=== PATIENT | female | born 1980 | race African-American/Black ===

== ENCOUNTER 2017-02-13 08:14 | Emergency (ER) | payer SELFPAY ==
[~2017-02-13 08:14] MED LIST: CYCL10TA2 PO; HYDR-971 PO; NAPR500T3 PO; PENI250T85 PO
[2017-02-13 08:15] VITALS: BP 167/106
[2017-02-13] MEDS ORDERED: LISI10TA2 PO (09:14)
--- NOTE | 2017-02-13 09:15 | PHYS DOC ---
Past Medical History Past Medical History: Hypertension Past Surgical History: , Tonsillectomy Additional Past Surgical Histo: x 4 Alcohol Use: None Drug Use: None Adult General Chief Complaint Chief Complaint: SORE THROAT HPI HPI Patient is a 36 year old female presents to the emergency department with a history of sore throat, and dental pain. Patient states she has a history of HTN and has not taken BP medication for at least a year. Patient states her BP was elevated at home and she took one of her mothers BP pills, metoprolol, patient states this was a medication she was on for her HTN. Patient denies SOA , chest pain, headache, blurred vision or tinnitus. Patient states she does not have a PCP. Patient continues to state she noticed this lump on the left back area of her throat after she had taken the metoprolol. Review of Systems Review of Systems Constitutional: Denies fever or chills [] Eyes: Denies change in visual acuity, redness, or eye pain [] HENT: nasal congestion and sore throat [] Respiratory: cough denies shortness of breath [] Cardiovascular: No additional information not addressed in HPI [] GI: Denies abdominal pain, nausea, vomiting, bloody stools or diarrhea [] : Denies dysuria or hematuria [] Musculoskeletal: Denies back pain or joint pain [] Integument: Denies rash or skin lesions [] Neurologic: Denies headache, focal weakness or sensory changes [] Endocrine: Denies polyuria or polydipsia [] Allergies Allergies Allergies Coded Allergies Type Severity Reaction Last Updated Verified ibuprofen Allergy Severe angioedema 09/06/13 Yes ketorolac tromethamine Allergy Severe angioedema 09/06/13 Yes Physical Exam Physical Exam Constitutional: Well developed, well nourished, no acute distress, non-toxic appearance. [] HENT: Normocephalic, atraumatic, bilateral external ears normal, oropharynx moist, no oral exudates, nose normal. Bilateral TM normal, throat with redness, no erythema, no exudate, no uvla deviation. Patient was noted to have bilateral enlarged anterior cervical adenopathy. Patient with tooth second from the back on the left with fracture noted, no abscess noted. Eyes: PERRLA, EOMI, conjunctiva normal, no discharge. [] Neck: Normal range of motion, no tenderness, supple, no stridor. [] Cardiovascular:Heart rate regular rhythm, no murmur [] Lungs & Thorax: Bilateral breath sounds clear to auscultation [] Abdomen: Bowel sounds normal, soft, no tenderness, no masses, no pulsatile masses. [] Skin: Warm, dry, no erythema, no rash. [] Back: No tenderness Extremities: No tenderness, no cyanosis, no clubbing, ROM intact, no edema. [] Neurologic: Alert and oriented X 3, normal motor function, normal sensory function, no focal deficits noted. [] Psychologic: Affect normal, judgement normal, mood normal. [] EKG EKG [] Radiology/Procedures Radiology/Procedures [] Course & Med Decision Making Course & Med Decision Making Pertinent Labs and Imaging studies reviewed. (See chart for details) Patient will be provided with BP at discharge. She was instructed to obtain a PCP for further management of her BP. Patient was provided with doctor list. She was provided with signs and symptoms to return to the emergency department. Patient will be provided with dentist list. Rapid strep negative. Patient will be encouraged to use Mucinex DM over the counter for congestion and cough. Tylenol for fever, chills and generalized body aches. Also spoke with patient in regards to using dental wax over the counter for dental pain, no abscess noted. Patient agrees with discharge instructions, treatment regimen and followup recommendations. [] Dragon Disclaimer Dragon Disclaimer This electronic medical record was generated, in whole or in part, using a voice recognition dictation system. Departure Departure Impression: Primary Impression: Toothache Additional Impressions: Hypertension Pharyngitis Disposition: HOME, SELF-CARE Condition: STABLE Referrals: NO PCP (PCP) Patient Instructions: Arterial Hypertension, Dental Pain, [id number], Viral and Bacterial Pharyngitis, [id number] Additional Instructions: You have been evaluated for sore throat with rapid strep negative Drink plenty of fluids Tylenol for fever, chills or generalized body aches You may purchase dental wax over the counter to place on the tooth to prevent pain Mucinex DM for cough, congestion and nasal drainage Medication as prescribed for your blood pressure It is imperative that you obtain a primary care provider to monitor your blood pressures Followup with primary care provider in 7 days Return to emergency department as needed for signs and symptoms that become worse. Scripts Lisinopril (LISINOPRIL) 10 Mg Tablet 1 TAB PO DAILY, #30 TAB 5 Refills Prov: ANTONIO LINDER APRN 02/13/17 Problem Qualifiers ANTONIO LINDER APRN February 13, 2017 09:15
[2017-02-13 09:27] LABS: NEGATIVE OBC STREP NEG; POSITIVE OBC STREP POS
== END 2017-02-13 10:13 | disposition home or self-care (01) ==
LOC: ER 08:20
DX: J02.9 Acute pharyngitis, unspecified (principal); K08.89 Other specified disorders of teeth and supporting structures; I10 Essential (primary) hypertension; Z88.6 Allergy status to analgesic agent; Z88.8 Allergy status to other drugs, medicaments and biological substances
CPT/HCPCS: 87070; 87880; 99283

== ENCOUNTER 2017-06-26 22:32 | Emergency (ER) | payer BC ==
[~2017-06-26] VITALS: Ht 172.7 cm; Wt 113.4 kg
[~2017-06-26 22:32] MED LIST changes: +LISI10TA2 PO; -NAPR500T3 PO; +NAPR500T4 PO
[2017-06-26 22:48] VITALS: BP 158/75
--- NOTE | 2017-06-26 23:31 | PHYS DOC ---
Past Medical History Past Medical History: Hypertension Past Surgical History: , Tonsillectomy Additional Past Surgical Histo: x 4 Alcohol Use: None Drug Use: None Adult General Chief Complaint Chief Complaint: BREAST PROBLEM HPI HPI Patient is a 37 year old female with no significant medical history who presents with a palpable painful knot on the left upper chest that she noted 2 days ago. Patient denies any chance she is . Denies any injury. She states the area appears bruised but she has not had any injuries. She states she has history of DVT approximately 10-15 years ago when she is . Denies taking any blood thinners. She states she used to be on heavy and has been working out and loosing alot of weight. Review of Systems Review of Systems Constitutional: Denies fever or chills [] Eyes: Denies change in visual acuity, redness, or eye pain [] HENT: Denies nasal congestion or sore throat [] Respiratory: Denies cough or shortness of breath [] Cardiovascular: No additional information not addressed in HPI [] GI: Denies abdominal pain, nausea, vomiting, bloody stools or diarrhea [] : Denies dysuria or hematuria [] Musculoskeletal: Denies back pain or joint pain [] Integument: palpable painful knot on the left upper chest Neurologic: Denies headache, focal weakness or sensory changes [] Allergies Allergies Allergies Coded Allergies Type Severity Reaction Last Updated Verified ibuprofen Allergy Severe angioedema 09/06/13 Yes ketorolac tromethamine Allergy Severe angioedema 09/06/13 Yes Physical Exam Physical Exam Constitutional: Well developed, well nourished, no acute distress, non-toxic appearance. [] HENT: Normocephalic, atraumatic, bilateral external ears normal, oropharynx moist, no oral exudates, nose normal. [] Eyes: PERRLA, EOMI, conjunctiva normal, no discharge. [] Neck: Normal range of motion, no tenderness, supple, no stridor. [] Cardiovascular:Heart rate regular rhythm, no murmur [] Lungs & Thorax: Bilateral breath sounds clear to auscultation [] Abdomen: Bowel sounds normal, soft, no tenderness, no masses, no pulsatile masses. [] Skin: Warm, dry, left upper chest without palpable and knot approximately 2 x 2 cm over varicose veins on the chest, there is discoloration over this area. No warmth over the area Back: No tenderness, no CVA tenderness. [] Extremities: No tenderness, no cyanosis, no clubbing, ROM intact, no edema. [] Neurologic: Alert and oriented X 3, normal motor function, normal sensory function, no focal deficits noted. [] Psychologic: Affect normal, judgement normal, mood normal. [] Current Patient Data Vital Signs Vital Signs Date Time Temp Pulse Resp B/P (MAP) Pulse Ox O2 Delivery O2 Flow Rate FiO2 06/26/17 22:48 97.5 84 20 100 Room Air 97.5 EKG EKG [] Radiology/Procedures Radiology/Procedures []PROCEDURE: US CHEST Chest ultrasound: Reason for examination: Left subclavicular lump with tenderness for 3 days. No history of trauma. Ultrasound examination was performed in the area of clinical concern around the left clavicle with grayscale imaging, color-flow imaging and spectral analysis. The left subclavian vein and subclavian arteries show normal vascular flow. Superficially however there is thrombosis in a superficial varicose vein which appears to extend over a length of approximately 12 to 15 cm.. IMPRESSION: Thrombosis in a superficial varicose vein over a 12 to 15 cm length corresponds to the area of clinical concern. No deep venous thrombosis evident. Electronically signed by: Shana Rosales MD (06/26/2017 11:55 PM) [facility] DICTATED and SIGNED BY: SHANA ROSALES MD DATE: 06/26/17 2343 CC: ZACKARY HINSON APRN; NO PCP ~ Course & Med Decision Making Course & Med Decision Making Pertinent Labs and Imaging studies reviewed. (See chart for details) Patient is in the ED with a palpable painful knot on the left upper chest with surrounding varicose veins. Doppler of the chest was done which was noted for Thrombosis in a superficial varicose vein over a 12 to 15 cm length. No deep venous thrombosis evident. Spoke with Dr. Emmanuel patient relations specialist for Dr. Abdalla he requested we discharge patient and does not need aspirin Instructed patient to f/u with PCP, nitroglycerin distributor or vein clinic next week. Her vitals were stable. Dragon Disclaimer Dragon Disclaimer This electronic medical record was generated, in whole or in part, using a voice recognition dictation system. Departure Departure Impression: Primary Impression: Varicose vein of leg Disposition: HOME, SELF-CARE Condition: STABLE Referrals: NO PCP (PCP) MACEY ABDALLA MD followup next week Patient Instructions: Varicose Veins Additional Instructions: You have a superficial thrombosed varicose vein on the left upper chest. Follow- up with the vein clinic and a primary care doctor. Continued loosing weight with diet and exercise. Come back to the ED if you have any chest pain or shortness of breath. ZACKARY HINSON APRN Jun 26, 2017 23:30
--- NOTE | 2017-06-26 23:58 | RAD ---
Chest ultrasound: Reason for examination: Left subclavicular lump with tenderness for 3 days. No history of trauma. Ultrasound examination was performed in the area of clinical concern around the left clavicle with grayscale imaging, color-flow imaging and spectral analysis. The left subclavian vein and subclavian arteries show normal vascular flow. Superficially however there is thrombosis in a superficial varicose vein which appears to extend over a length of approximately 12 to 15 cm.. IMPRESSION: Thrombosis in a superficial varicose vein over a 12 to 15 cm length corresponds to the area of clinical concern. No deep venous thrombosis evident. Electronically signed by: Shana Winchester MD (06/26/2017 11:55 PM) [facility]
== END 2017-06-27 00:56 | disposition home or self-care (01) ==
LOC: ER 22:32
DX: R22.2 Localized swelling, mass and lump, trunk (principal); I83.92 Asymptomatic varicose veins of left lower extremity; I10 Essential (primary) hypertension; Z88.6 Allergy status to analgesic agent; Z88.8 Allergy status to other drugs, medicaments and biological substances; Z86.718 Personal history of other venous thrombosis and embolism
CPT/HCPCS: 76604; 99284-25

== ENCOUNTER 2019-05-11 21:42 | Emergency (ER) | payer SELFPAY ==
[~2019-05-11] VITALS: Ht 172.7 cm; Wt 145.1 kg
[~2019-05-11 21:42] MED LIST changes: +HYDR-3164 PO; -HYDR-971 PO; +NAPR-514 PO; -NAPR500T4 PO
[2019-05-11] MEDS ORDERED: fentaNYL PF VIAL 100 MCG/2 ML VIAL IV ONE (22:00)
[2019-05-11] MEDS ORDERED: FAMOTIDINE 20 MG/2 ML VIAL IVP ONE (22:00)
[2019-05-11] MEDS ORDERED: NITROGLYCERIN SUBLINGUAL 0.4 MG BOTTLE OF 25. SL PRN (22:00)
[2019-05-11] MEDS ORDERED: IV NORMAL SALINE 1000ML BAG 1,000 ML IV ONE (22:00)
[2019-05-11] MEDS ORDERED: ONDANSETRON PF 4 MG/2 ML VIAL. IV ONE (22:00)
--- NOTE | 2019-05-11 22:00 | PHYS DOC ---
Past Medical History Past Medical History: Hypertension Past Surgical History: , Tonsillectomy Additional Past Surgical Histo: x 4 Alcohol Use: None Drug Use: None Adult General Chief Complaint Chief Complaint: ABDOMINAL PAIN HPI HPI Patient is a 39 year old female with history of hypertension who presents to the ED today complaining of mild to moderate bilateral mid abdominal pain with nausea and vomiting that began yesterday. Patient is also complaining of chest soreness since this morning. Denies anything specifically exacerbating or relieving her symptoms. She states she has tried Pepto-Bismol with no relief. Denies any hematemesis. Denies any diarrhea. Review of Systems Review of Systems Constitutional: Denies fever or chills [] Eyes: Denies change in visual acuity, redness, or eye pain [] HENT: Denies nasal congestion or sore throat [] Respiratory: Denies cough or shortness of breath [] Cardiovascular: Reports chest soreness GI: Reports abdominal pain, nausea vomiting and diarrhea, denies bloody stools or diarrhea [] : Denies dysuria or hematuria [] Musculoskeletal: Denies back pain or joint pain [] Integument: Denies rash or skin lesions [] Neurologic: Denies headache, focal weakness or sensory changes [] All other systems were reviewed and found to be within normal limits, except as documented in this note. Current Medications Current Medications Current Medications Medications (Trade) Dose Ordered Sig/Jackie Start Time Stop Time Status Last Admin Dose Admin Famotidine (Pepcid Vial) 20 mg 1X ONCE 05/11/19 22:00 05/11/19 22:01 DC 05/11/19 22:30 20 MG Fentanyl Citrate (Fentanyl 2ml Vial) 50 mcg 1X ONCE 05/11/19 22:00 05/11/19 22:01 DC 05/11/19 22:30 50 MCG Info (CONTRAST GIVEN -- Rx MONITORING) 1 each PRN DAILY PRN 05/11/19 22:45 05/13/19 22:44 Iohexol (Omnipaque 300 Mg/ml) 75 ml 1X ONCE 05/11/19 22:45 05/11/19 22:46 DC 05/11/19 22:38 75 ML Nitroglycerin (Nitrostat) 0.4 mg PRN Q5MIN PRN 05/11/19 22:00 05/12/19 21:59 05/11/19 22:30 0.4 MG Ondansetron HCl (Zofran) 4 mg 1X ONCE 05/11/19 22:00 05/11/19 22:01 DC 05/11/19 22:30 4 MG Sodium Chloride 1,000 ml @ 1,000 mls/hr 1X ONCE 05/11/19 22:00 05/11/19 22:59 DC 05/11/19 22:30 1,000 MLS/HR Allergies Allergies Allergies Coded Allergies Type Severity Reaction Last Updated Verified ibuprofen Allergy Severe angioedema 09/06/13 Yes ketorolac tromethamine Allergy Severe angioedema 09/06/13 Yes Physical Exam Physical Exam Constitutional: Well developed, well nourished, no acute distress, non-toxic appearance. [] HENT: Normocephalic, atraumatic, bilateral external ears normal, oropharynx moist, no oral exudates, nose normal. [] Eyes: PERRLA, EOMI, conjunctiva normal, no discharge. [] Neck: Normal range of motion, no tenderness, supple, no stridor. [] Cardiovascular:Heart rate regular rhythm, no murmur [] Lungs & Thorax: Bilateral breath sounds clear to auscultation [] Abdomen: Bowel sounds normal, soft, no tenderness, no masses, no pulsatile masses. [] Skin: Warm, dry, no erythema, no rash. [] Back: No tenderness, no CVA tenderness. [] Extremities: No tenderness, no cyanosis, no clubbing, ROM intact, no edema. [] Neurologic: Alert and oriented X 3, normal motor function, normal sensory function, no focal deficits noted. [] Psychologic: Affect normal, judgement normal, mood normal. [] Current Patient Data Vital Signs Vital Signs Date Time Temp Pulse Resp B/P (MAP) Pulse Ox O2 Delivery O2 Flow Rate FiO2 05/11/19 22:30 Room Air 05/11/19 22:30 88 162/80 05/11/19 21:45 98.4 20 99 98.4 Lab Values Laboratory Tests Test 05/11/19 21:50 05/11/19 22:33 White Blood Count 9.5 x10^3/uL (4.0-11.0) Red Blood Count 4.19 x10^6/uL (3.50-5.40) Hemoglobin 10.2 g/dL (12.0-15.5) L Hematocrit 31.2 % (36.0-47.0) L Mean Corpuscular Volume 75 fL (79-100) L Mean Corpuscular Hemoglobin 24 pg (25-35) L Mean Corpuscular Hemoglobin Concent 33 g/dL (31-37) Red Cell Distribution Width 16.3 % (11.5-14.5) H Platelet Count 344 x10^3/uL (140-400) Neutrophils (%) (Auto) 64 % (31-73) Lymphocytes (%) (Auto) 25 % (24-48) Monocytes (%) (Auto) 9 % (0-9) Eosinophils (%) (Auto) 1 % (0-3) Basophils (%) (Auto) 1 % (0-3) Neutrophils # (Auto) 6.1 x10^3/uL (1.8-7.7) Lymphocytes # (Auto) 2.4 x10^3/uL (1.0-4.8) Monocytes # (Auto) 0.9 x10^3/uL (0.0-1.1) Eosinophils # (Auto) 0.1 x10^3/uL (0.0-0.7) Basophils # (Auto) 0.1 x10^3/uL (0.0-0.2) Sodium Level 141 mmol/L (136-145) Potassium Level 3.5 mmol/L (3.5-5.1) Chloride Level 105 mmol/L (98-107) Carbon Dioxide Level 28 mmol/L (21-32) Anion Gap 8 (6-14) Blood Urea Nitrogen 16 mg/dL (7-20) Creatinine 1.0 mg/dL (0.6-1.0) Estimated GFR (Cockcroft-Gault) 75.5 BUN/Creatinine Ratio 16 (6-20) Glucose Level 99 mg/dL (70-99) Calcium Level 9.0 mg/dL (8.5-10.1) Magnesium Level 2.1 mg/dL (1.8-2.4) Total Bilirubin 1.0 mg/dL (0.2-1.0) Aspartate Amino Transferase (AST) 17 U/L (15-37) Alanine Aminotransferase (ALT) 14 U/L (14-59) Alkaline Phosphatase 72 U/L (46-116) Creatine Kinase 159 U/L (26-192) Creatine Kinase MB (Mass) 0.7 ng/mL (0.0-3.6) Creatine Kinase MB Relative Index 0.4 % (0-4) Troponin I Quantitative < 0.017 ng/mL (0.000-0.055) QX-Zdp-L-Type Natriuretic Peptide 20 pg/mL (0-124) Total Protein 7.9 g/dL (6.4-8.2) Albumin 3.5 g/dL (3.4-5.0) Albumin/Globulin Ratio 0.8 (1.0-1.7) L Lipase 126 U/L (73-393) Thyroid Stimulating Hormone (TSH) 0.869 uIU/mL (0.358-3.74) Urine Collection Type Unknown Urine Color Yellow Urine Clarity Clear Urine pH 6.0 Urine Specific [place] >=1.030 Urine Protein Negative mg/dL (NEG-TRACE) Urine Glucose (UA) Negative mg/dL (NEG) Urine Ketones (Stick) Negative mg/dL (NEG) Urine Blood Negative (NEG) Urine Nitrite Negative (NEG) Urine Bilirubin Small (NEG) Urine Urobilinogen Dipstick 1.0 mg/dL (0.2 mg/dL) Urine Leukocyte Esterase Negative (NEG) Urine RBC 0 /HPF (0-2) Urine WBC 1-4 /HPF (0-4) Urine Squamous Epithelial Cells Mod /LPF Urine Bacteria Few /HPF (0-FEW) Urine Mucus Marked /LPF Urine Trichomonas Present Urine Opiates Screen Neg (NEG) Urine Methadone Screen Neg (NEG) Urine Barbiturates Neg (NEG) Urine Phencyclidine Screen Neg (NEG) Urine Amphetamine/Methamphetamine Neg (NEG) Urine Benzodiazepines Screen Neg (NEG) Urine Cocaine Screen Neg (NEG) Urine Cannabinoids Screen Pos (NEG) Urine Ethyl Alcohol Neg (NEG) Laboratory Tests 05/11/19 21:50 Laboratory Tests 05/11/19 21:50 EKG EKG 2140 interpreted by sinus rhythm HR 81 no STEMI[] Radiology/Procedures Radiology/Procedures []PROCEDURE: CT ABD PELV W/ IV CONTRST ONLY Exam: CT abdomen and pelvis with contrast INDICATION: Abdominal pain TECHNIQUE: Sequential axial images through the abdomen and pelvis obtained following the administration of 75 mL of Omni 300 IV contrast. Sagittal and coronal reformatted images were reconstructed from the axial data and reviewed. Comparisons: None FINDINGS: Heart size is normal. No pericardial effusion. Visualized lung bases are clear. No pleural effusion. Liver, spleen, pancreas, gallbladder and adrenals are unremarkable. Kidneys demonstrate symmetric enhancement. No perinephric inflammation or hydronephrosis. No renal or ureteral calculi. There is a small amount of intra-abdominal ascites seen along the perihepatic region. Mild inflammatory changes surrounding a short segment of small bowel in the right upper quadrant. No obstruction. No free intra-abdominal air. Abdominal aorta has a normal course and caliber. No enlarged abdominal lymph nodes are identified. No suspicious osseous lesion or acute fracture. IMPRESSION: Small amount of intra-abdominal ascites which is abnormal. There is inflammatory changes surrounding a short segment of small bowel in the right upper quadrant, which is nonspecific may represent enteritis. No free air or fluid collection identified. Close clinical follow-up is recommended. If symptoms worsen repeat imaging is advised. Exposure: One or more of the following in the visualized dose reduction techniques were utilized for this examination: 1. Automated exposure control 2. Adjustment of the MA and/or KV according to patient size 3. Use of iterative of reconstructive technique Electronically signed by: Zaida Chang MD (05/11/2019 10:52 PM) [facility] DICTATED and SIGNED BY: ZAIDA CHANG MD DATE: 05/11/192251 Course & Med Decision Making Course & Med Decision Making Pertinent Labs and Imaging studies reviewed. (See chart for details) This is a 39-year-old female patient with history of hypertension who presents to the ED today with abdominal pain, nausea vomiting since yesterday, also complaining of chest soreness. EKG is negative. Troponin is normal. See Heart score hillary. CBC with a normal WBC, CMP with no acute findings. Urine analysis is negative for infection, noted for Trichomonas. STD treatment and education provided. CT of the abdomen and pelvic was noted for ascites and possible nonspecific enteritis. Radiologist recommended close follow-up. Patient was provided GI for follow-up in the next 2 days. BP is in the ED 160s over 80s. Also encouraged follow-up with her PCP for high blood pressure. Dragon Disclaimer Dragon Disclaimer This electronic medical record was generated, in whole or in part, using a voice recognition dictation system. The HEART Score for CP Pts HEART Score for Chest Pain: HEART Score for Chest Pain Response (Comments) Value History Slighlty/Non-Suspicious 0 ECG Normal 0 Age < 45 0 Risk Factors 1 or 2 Risk Factors 1 Troponin < Normal Limit 0 Total 1 Risk Factors: Risk Factors: DM, Current or recent (<one month) smoker, HTN, HLP, family history of CAD, obesity. Risk Scores: Score 0 - 3: 2.5% MACE over next 6 weeks - Discharge Home Score 4 - 6: 20.3% MACE over next 6 weeks - Admit for Clinical Observation Score 7 - 10: 72.7% MACE over next 6 weeks - Early Invasive Strategies Departure Departure Impression: Primary Impression: Abdominal pain Additional Impressions: Nausea and vomiting Ascites Enteritis Disposition: HOME, SELF-CARE Condition: STABLE Referrals: NO PCP (PCP) KAM AU MD follow up as soon as you can Patient Instructions: Ascites, Viral Gastroenteritis Additional Instructions: You were evaluated in the emergency room for abdominal pain, you have ascites and gastroenteritis. You also have Trichomonas, we treated you in the emergency room. Follow up with the provided GI specialist as soon as you can. We also recommend you establish care with one of the primary care doctor or local clinic from the list with provided. Come back to the ED at any point symptoms worsen. Scripts Ondansetron (ONDANSETRON ODT) 4 Mg Tab.rapdis 1 TAB PO PRN Q6-8HRS, #16 TAB Prov: ZACKARY HINSON FRANKI 05/11/19 Dicyclomine Hcl (DICYCLOMINE HCL) 20 Mg Tablet 1 TAB PO TID, #30 TAB 0 Refills Prov: ZACKARY HINSON FRANKI 05/11/19 Problem Qualifiers Primary Impression: Abdominal pain Abdominal location: upper abdomen, unspecified Qualified Codes: R10.10 - Upper abdominal pain, unspecified Additional Impressions: Nausea and vomiting Vomiting type: unspecified Vomiting Intractability: non-intractable Qualified Codes: R11.2 - Nausea with vomiting, unspecified Ascites Ascites type: other type Qualified Codes: R18.8 - Other ascites ZACKARY HINSON FRANKI May 11, 2019 22:00
[2019-05-11 22:13] LABS: BASO # 0.1 x10^3/uL (0.0-0.2); BASO % 1 % (0-3); EOS # 0.1 x10^3/uL (0.0-0.7); EOS % 1 % (0-3); HEMATOCRIT 31.2 % (36.0-47.0); HEMOGLOBIN 10.2 g/dL (12.0-15.5); LYMPH # 2.4 x10^3/uL (1.0-4.8); LYMPH % 25 % (24-48); MEAN CORPUSCULAR HEMOGLOBIN 24 pg (25-35); MEAN CORPUSCULAR HGB CONC 33 g/dL (31-37); MEAN CORPUSCULAR VOLUME 75 fL (79-100); MONO # 0.9 x10^3/uL (0.0-1.1); MONO % 9 % (0-9); NEUT # 6.1 x10^3/uL (1.8-7.7); NEUT % 64 % (31-73); PLATELET COUNT 344 x10^3/uL (140-400); RED BLOOD COUNT 4.19 x10^6/uL (3.50-5.40); RED CELL DISTRIBUTION WIDTH 16.3 % (11.5-14.5); WHITE BLOOD COUNT 9.5 x10^3/uL (4.0-11.0)
[2019-05-11 22:21] LABS: GFR 75.5; POTASSIUM 3.5 mmol/L (3.5-5.1)
[2019-05-11 22:27] LABS: ALBUMIN 3.5 g/dL (3.4-5.0); ALBUMIN/GLOBULIN RATIO 0.8 (1.0-1.7); MAGNESIUM 2.1 mg/dL (1.8-2.4); TOTAL PROTEIN 7.9 g/dL (6.4-8.2)
[2019-05-11 22:41] LABS: BILIRUBIN,URINE SMALL (NEG); CLARITY,URINE CLEAR; COLOR,URINE YELLOW; NITRITE,URINE NEGATIVE (NEG); PROTEIN,URINE NEGATIVE (NEG-TRACE)
[2019-05-11] MEDS ORDERED: IOHEXOL 300 MG/ML 100ML VIAL. IV ONE (22:45)
[2019-05-11] MEDS ORDERED: CONTRAST GIVEN. MC PRN (22:45)
[2019-05-11 22:47] LABS: AMPHETAMINE/METHAMPHETAMINE NEG (NEG); BARBITURATES NEG (NEG); BENZODIAZEPINES NEG (NEG); CANNABINOIDS POS (NEG); COCAINE NEG (NEG); METHADONE NEG (NEG); OPIATES NEG (NEG); PHENCYCLIDINE NEG (NEG)
[2019-05-11 22:48] LABS: SQUAMOUS EPITHELIAL CELL,UR MOD /LPF
[2019-05-11 22:50] LABS: BACTERIA,URINE FEW /HPF (0-FEW)
[2019-05-11 22:51] LABS: RBC,URINE 0 /HPF (0-2)
[2019-05-11 22:53] LABS: TRICHOMONAS,URINE PRESENT
--- NOTE | 2019-05-11 22:55 | RAD ---
Exam: CT abdomen and pelvis with contrast INDICATION: Abdominal pain TECHNIQUE: Sequential axial images through the abdomen and pelvis obtained following the administration of 75 mL of Omni 300 IV contrast. Sagittal and coronal reformatted images were reconstructed from the axial data and reviewed. Comparisons: None FINDINGS: Heart size is normal. No pericardial effusion. Visualized lung bases are clear. No pleural effusion. Liver, spleen, pancreas, gallbladder and adrenals are unremarkable. Kidneys demonstrate symmetric enhancement. No perinephric inflammation or hydronephrosis. No renal or ureteral calculi. There is a small amount of intra-abdominal ascites seen along the perihepatic region. Mild inflammatory changes surrounding a short segment of small bowel in the right upper quadrant. No obstruction. No free intra-abdominal air. Abdominal aorta has a normal course and caliber. No enlarged abdominal lymph nodes are identified. No suspicious osseous lesion or acute fracture. IMPRESSION: Small amount of intra-abdominal ascites which is abnormal. There is inflammatory changes surrounding a short segment of small bowel in the right upper quadrant, which is nonspecific may represent enteritis. No free air or fluid collection identified. Close clinical follow-up is recommended. If symptoms worsen repeat imaging is advised. Exposure: One or more of the following in the visualized dose reduction techniques were utilized for this examination: 1. Automated exposure control 2. Adjustment of the MA and/or KV according to patient size 3. Use of iterative of reconstructive technique Electronically signed by: Zaida Murphy MD (05/11/2019 10:52 PM) [facility]
--- NOTE | 2019-05-11 23:25 | RAD ---
EXAM: CHEST ONE VIEW. HISTORY: Chest pain. COMPARISON: None. FINDINGS: A frontal view of the chest is obtained. There are no confluent infiltrates. Calcified mediastinal lymph nodes are likely secondary to old granulomatous disease. There is no pneumothorax or pleural effusion. The heart is not enlarged. IMPRESSION: 1. No confluent infiltrates. Electronically signed by: Ramin Agrawal MD (05/11/2019 11:22 PM) [facility]
[2019-05-11] MEDS ORDERED: DICY20TA3 PO (23:28)
[2019-05-11] MEDS ORDERED: ONDA4TAB12 PO (23:28)
[2019-05-11] MEDS ORDERED: metroNIDAZOLE 500 MG TABLET PO ONE (23:30)
[2019-05-11] MEDS ORDERED: AZITHROMYCIN 250 MG TABLET. PO ONE (23:30)
[2019-05-11] MEDS ORDERED: cefTRIAXone IV Push 1 GM VIAL. IVP ONE (23:30)
[2019-05-11 23:40] VITALS: BP 159/84
--- NOTE | 2019-05-12 06:24 | EKG ---
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
== END 2019-05-12 00:04 | disposition home or self-care (01) ==
LOC: ER 21:42
DX: K52.9 Noninfective gastroenteritis and colitis, unspecified (principal); R18.8 Other ascites; I10 Essential (primary) hypertension; R07.89 Other chest pain; Z88.6 Allergy status to analgesic agent; Z88.8 Allergy status to other drugs, medicaments and biological substances
CPT/HCPCS: 36415; 71045; 74177; 80053; 80307; 81001; 82553; 83690; 83735; 83880; 84443; 84484; 85025; 93005; 96361; 96374; 96375; 99285; J0696; J2405; J3010; J3490; J7030; Q0144; Q9967

== ENCOUNTER 2019-06-30 11:04 | Emergency (ER) | payer MEDICAID ==
[~2019-06-30] VITALS: Ht 172.7 cm; Wt 104.3 kg
[~2019-06-30 11:04] MED LIST changes: +DICY20TA3 PO; +ONDA4TAB12 PO
[2019-06-30] MEDS ORDERED: IV NORMAL SALINE 1000ML BAG 1,000 ML IV SCH (11:53)
--- NOTE | 2019-06-30 12:01 | PHYS DOC ---
Past Medical History Past Medical History: Hypertension Past Surgical History: , Tonsillectomy Additional Past Surgical Histo: x 4 C SECTION Alcohol Use: None Drug Use: None Adult General Chief Complaint Chief Complaint: ABDOMINAL PAIN HPI HPI Patient is a 39-year-old female who presents to the emergency department for evaluation. She states that for the past 2 days she has been having diffuse abdominal pain, mostly in her epigastric area. She has had some episodes of vomiting, but no diarrhea. She has not had any hematemesis. She was seen at 2 days ago for the same thing, and diagnosed with gastritis and given omeprazole, but her symptoms have persisted. She last vomited yesterday. She states that she smokes marijuana only about the time of her menstrual cycles, and had a similar episode of pain when smoking marijuana about a month ago, which resolved, until her period began several days ago, when she smoke marijuana again. She states that this is the only thing that seems to help her menstrual cramps. There are no alleviating or exacerbating factors to her symptoms. She denies any pelvic pain, vaginal bleeding, or discharge, concern for STD, and declines evaluation for the same. Review of Systems Review of Systems Constitutional: Denies fever or chills [] Eyes: Denies change in visual acuity, redness, or eye pain [] HENT: Denies nasal congestion or sore throat [] Respiratory: Denies cough or shortness of breath [] Cardiovascular: The patient denies any shortness of breath, chest pain, palpitations, or orthopnea[] GI: No additional information not addressed in HPI [] : Denies dysuria or hematuria [] Musculoskeletal: Denies back pain or joint pain [] Integument: Denies rash or skin lesions [] Neurologic: Denies headache, focal weakness or sensory changes [] Endocrine: Denies polyuria or polydipsia [] All other systems were reviewed and found to be within normal limits, except as documented in this note. Current Medications Current Medications Current Medications Medications (Trade) Dose Ordered Sig/Jackie Start Time Stop Time Status Last Admin Dose Admin Famotidine (Pepcid Vial) 20 mg 1X ONCE 06/30/19 12:30 06/30/19 12:31 DC 06/30/19 12:11 20 MG Heparin Sodium (Porcine) (Hep Lock Adult) 500 unit 1X ONCE 06/30/19 12:30 06/30/19 12:31 Cancel Info (CONTRAST GIVEN -- Rx MONITORING) 1 each PRN DAILY PRN 06/30/19 12:30 07/02/19 12:29 Iohexol (Omnipaque 300 Mg/ml) 75 ml 1X ONCE 06/30/19 12:30 06/30/19 12:31 DC 06/30/19 12:41 75 ML Multi-Ingredient Mouthwash/Gargle (Gi Cocktail) 20 ml 1X ONCE 06/30/19 12:15 06/30/19 12:16 DC 06/30/19 12:46 20 ML Ondansetron HCl (Zofran) 4 mg 1X ONCE 06/30/19 12:30 06/30/19 12:31 DC 06/30/19 12:11 4 MG Sodium Chloride 1,000 ml @ 1,000 mls/hr Q1H 06/30/19 11:53 06/30/19 12:52 DC 06/30/19 12:11 1,000 MLS/HR Allergies Allergies Allergies Coded Allergies Type Severity Reaction Last Updated Verified ibuprofen Allergy Severe angioedema 09/06/13 Yes ketorolac tromethamine Allergy Severe angioedema 09/06/13 Yes Physical Exam Physical Exam PHYSICAL EXAM: CONSTITUTIONAL: Well developed, well nourished HEAD: normocephalic, atraumatic EENT: PERRL, EOMI. Conjunctivae normal color, sclerae non-icteric; moist mucous membranes. NECK: Supple, non-tender; no meningismus. LUNGS: Lungs CTA, breathing even and unlabored. Normal air movement. HEART: Regular rate and rhythm, no murmur CHEST: No deformity; non-tender ABDOMEN: The abdomen is soft, there is mild diffuse tenderness to palpation to the entire abdomen, most prominent in the epigastric area, left upper quadrant, and right lower quadrant, without focal suprapubic tenderness to palpation, or rebound or guarding. Paul sign is absent, the right upper quadrant is relatively nontender, no masses or bruits. EXTREM: Normal ROM; no deformity, no calf tenderness. Normal pulses palpable in all extremities. There is no pedal edema. SKIN: No rash; no diaphoresis NEURO: Alert; normal speech and cognition; CN's grossly intact; strength grossly intact without focal deficit. BACK: No CVA TTP. Current Patient Data Vital Signs Vital Signs Date Time Temp Pulse Resp B/P (MAP) Pulse Ox O2 Delivery O2 Flow Rate FiO2 06/30/19 12:30 72 18 163/95 (117) 97 Room Air 06/30/19 11:13 98.6 98.6 Lab Values Laboratory Tests Test 06/30/19 11:00 06/30/19 11:23 06/30/19 12:00 Urine Collection Type Unknown Urine Color Yellow Urine Clarity Clear Urine pH 6.0 Urine Specific [place] 1.025 Urine Protein Negative mg/dL (NEG-TRACE) Urine Glucose (UA) Negative mg/dL (NEG) Urine Ketones (Stick) Negative mg/dL (NEG) Urine Blood Negative (NEG) Urine Nitrite Negative (NEG) Urine Bilirubin Negative (NEG) Urine Urobilinogen Dipstick 1.0 mg/dL (0.2 mg/dL) Urine Leukocyte Esterase Small (NEG) Urine RBC 0 /HPF (0-2) Urine WBC 11-20 /HPF (0-4) Urine Squamous Epithelial Cells Many /LPF Urine Bacteria Many /HPF (0-FEW) Urine Mucus Marked /LPF POC Urine HCG, Qualitative Hcg negative (Negative) White Blood Count 5.2 x10^3/uL (4.0-11.0) Red Blood Count 3.73 x10^6/uL (3.50-5.40) Hemoglobin 8.8 g/dL (12.0-15.5) L Hematocrit 27.9 % (36.0-47.0) L Mean Corpuscular Volume 75 fL (79-100) L Mean Corpuscular Hemoglobin 24 pg (25-35) L Mean Corpuscular Hemoglobin Concent 32 g/dL (31-37) Red Cell Distribution Width 16.8 % (11.5-14.5) H Platelet Count 301 x10^3/uL (140-400) Neutrophils (%) (Auto) 49 % (31-73) Lymphocytes (%) (Auto) 36 % (24-48) Monocytes (%) (Auto) 10 % (0-9) H Eosinophils (%) (Auto) 2 % (0-3) Basophils (%) (Auto) 2 % (0-3) Neutrophils # (Auto) 2.6 x10^3/uL (1.8-7.7) Lymphocytes # (Auto) 1.9 x10^3/uL (1.0-4.8) Monocytes # (Auto) 0.5 x10^3/uL (0.0-1.1) Eosinophils # (Auto) 0.1 x10^3/uL (0.0-0.7) Basophils # (Auto) 0.1 x10^3/uL (0.0-0.2) Sodium Level 145 mmol/L (136-145) Potassium Level 3.7 mmol/L (3.5-5.1) Chloride Level 105 mmol/L (98-107) Carbon Dioxide Level 29 mmol/L (21-32) Anion Gap 11 (6-14) Blood Urea Nitrogen 11 mg/dL (7-20) Creatinine 0.8 mg/dL (0.6-1.0) Estimated GFR (Cockcroft-Gault) 97.7 BUN/Creatinine Ratio 14 (6-20) Glucose Level 84 mg/dL (70-99) Calcium Level 8.9 mg/dL (8.5-10.1) Total Bilirubin 0.6 mg/dL (0.2-1.0) Aspartate Amino Transferase (AST) 16 U/L (15-37) Alanine Aminotransferase (ALT) 14 U/L (14-59) Alkaline Phosphatase 67 U/L (46-116) Total Protein 7.4 g/dL (6.4-8.2) Albumin 3.3 g/dL (3.4-5.0) L Albumin/Globulin Ratio 0.8 (1.0-1.7) L Lipase 70 U/L (73-393) L Laboratory Tests 06/30/19 12:00 Laboratory Tests 06/30/19 12:00 EKG EKG [] Radiology/Procedures Radiology/Procedures PROCEDURE: CT ABD PELV W/ IV CONTRST ONLY CT study of the abdomen and pelvis with contrast Clinical indications: Diffuse upper abdominal pain. TECHNIQUE: After IV infusion of 75 cc of Omnipaque 300, helical CT scanning of the abdomen and pelvis was performed. No GI contrast was administered. This may decrease the sensitivity to detect GI tract pathology. PQRS compliance Statement One or more of the following individualized dose reduction techniques were utilized for this study: 1. Automated exposure control 2. Adjustment of the mA and/or kV according to patient size 3. Use of iterative reconstruction technique COMPARISON: May 11, 2019. FINDINGS: The liver and spleen and pancreas and gallbladder are normal. No extrahepatic biliary ductal dilatation is seen. No adrenal mass is evident. Both kidneys are normal without hydronephrosis or hydroureter. No urinary tract stone is evident. The urinary bladder is not distended. Uterus is surgically absent. Left ovarian cyst is seen measuring 3.2 cm in size. No enlarged abdominal or pelvic lymphadenopathy is seen. The appendix is normal. No obstructive bowel pattern is evident. No free air or free fluid is seen. No mesenteric edema is evident. No lung base consolidation is evident. Calcified granuloma of the left lung base is seen. No lytic process is seen. IMPRESSION: 3.2 cm left ovarian cyst. It measured 2.6 cm previously. The previously seen free fluid within the pelvis has resolved. Previously seen inflammatory change around the bowel of the right upper quadrant abdomen has cleared as well. Course & Med Decision Making Course & Med Decision Making Pertinent Labs and Imaging studies reviewed. (See chart for details) []1:30 PM: The patient's condition remains stable. I discussed test results with the patient, the need for close outpatient follow-up, marijuana abstinence, and return precautions. Dragon Disclaimer Dragon Disclaimer This electronic medical record was generated, in whole or in part, using a voice recognition dictation system. Departure Departure Impression: Primary Impression: Abdominal pain Disposition: HOME, SELF-CARE Condition: STABLE Referrals: KAM AU MD Patient Instructions: Abdominal Pain, Gastritis, Adult Scripts Ondansetron Hcl (ZOFRAN) 4 Mg Tablet 1 TAB PO Q6HRS PRN for NAUSEA/VOMITING, #20 TAB Prov: EULALIO AYON MD 06/30/19 EULALIO AYON MD Jun 30, 2019 12:01
[2019-06-30 12:12] LABS: BASO # 0.1 x10^3/uL (0.0-0.2); BASO % 2 % (0-3); EOS # 0.1 x10^3/uL (0.0-0.7); EOS % 2 % (0-3); HEMATOCRIT 27.9 % (36.0-47.0); HEMOGLOBIN 8.8 g/dL (12.0-15.5); LYMPH # 1.9 x10^3/uL (1.0-4.8); LYMPH % 36 % (24-48); MEAN CORPUSCULAR HEMOGLOBIN 24 pg (25-35); MEAN CORPUSCULAR HGB CONC 32 g/dL (31-37); MEAN CORPUSCULAR VOLUME 75 fL (79-100); MONO # 0.5 x10^3/uL (0.0-1.1); MONO % 10 % (0-9); NEUT # 2.6 x10^3/uL (1.8-7.7); NEUT % 49 % (31-73); PLATELET COUNT 301 x10^3/uL (140-400); RED BLOOD COUNT 3.73 x10^6/uL (3.50-5.40); RED CELL DISTRIBUTION WIDTH 16.8 % (11.5-14.5); WHITE BLOOD COUNT 5.2 x10^3/uL (4.0-11.0)
[2019-06-30] MEDS ORDERED: LIDO:MAALOX 1:1 20 ML SINGLE DOSE. SWSW ONE (12:15)
[2019-06-30 12:23] LABS: CALCIUM 8.9 mg/dL (8.5-10.1); CREATININE 0.8 mg/dL (0.6-1.0); GFR 97.7; POTASSIUM 3.7 mmol/L (3.5-5.1)
[2019-06-30 12:27] LABS: ALBUMIN 3.3 g/dL (3.4-5.0); ALBUMIN/GLOBULIN RATIO 0.8 (1.0-1.7); TOTAL BILIRUBIN 0.6 mg/dL (0.2-1.0); TOTAL PROTEIN 7.4 g/dL (6.4-8.2)
[2019-06-30 12:30] VITALS: BP 163/95
[2019-06-30 12:30] LABS: BILIRUBIN,URINE NEGATIVE (NEG); CLARITY,URINE CLEAR; COLOR,URINE YELLOW; NITRITE,URINE NEGATIVE (NEG); PROTEIN,URINE NEGATIVE (NEG-TRACE)
[2019-06-30] MEDS ORDERED: HEPARIN PF 500 UNIT/5 ML DISP.SYRIN. IVP ONE (12:30)
[2019-06-30] MEDS ORDERED: FAMOTIDINE 20 MG/2 ML VIAL IVP ONE (12:30)
[2019-06-30] MEDS ORDERED: IOHEXOL 300 MG/ML 100ML VIAL. IV ONE (12:30)
[2019-06-30] MEDS ORDERED: CONTRAST GIVEN. MC PRN (12:30)
[2019-06-30] MEDS ORDERED: ONDANSETRON PF 4 MG/2 ML VIAL. IV ONE (12:30)
[2019-06-30 12:31] LABS: BACTERIA,URINE MANY /HPF (0-FEW); RBC,URINE 0 /HPF (0-2); SQUAMOUS EPITHELIAL CELL,UR MANY /LPF
--- NOTE | 2019-06-30 13:22 | RAD ---
CT study of the abdomen and pelvis with contrast Clinical indications: Diffuse upper abdominal pain. TECHNIQUE: After IV infusion of 75 cc of Omnipaque 300, helical CT scanning of the abdomen and pelvis was performed. No GI contrast was administered. This may decrease the sensitivity to detect GI tract pathology. PQRS compliance Statement One or more of the following individualized dose reduction techniques were utilized for this study: 1. Automated exposure control 2. Adjustment of the mA and/or kV according to patient size 3. Use of iterative reconstruction technique COMPARISON: May 11, 2019. FINDINGS: The liver and spleen and pancreas and gallbladder are normal. No extrahepatic biliary ductal dilatation is seen. No adrenal mass is evident. Both kidneys are normal without hydronephrosis or hydroureter. No urinary tract stone is evident. The urinary bladder is not distended. Uterus is surgically absent. Left ovarian cyst is seen measuring 3.2 cm in size. No enlarged abdominal or pelvic lymphadenopathy is seen. The appendix is normal. No obstructive bowel pattern is evident. No free air or free fluid is seen. No mesenteric edema is evident. No lung base consolidation is evident. Calcified granuloma of the left lung base is seen. No lytic process is seen. IMPRESSION: 3.2 cm left ovarian cyst. It measured 2.6 cm previously. The previously seen free fluid within the pelvis has resolved. Previously seen inflammatory change around the bowel of the right upper quadrant abdomen has cleared as well. Electronically signed by: Dean Elias MD (06/30/2019 1:19 PM) [id number]
[2019-06-30] MEDS ORDERED: ONDA4TAB7 PO (13:36)
== END 2019-06-30 13:58 | disposition home or self-care (01) ==
LOC: ER 11:04
DX: R10.84 Generalized abdominal pain (principal); R11.10 Vomiting, unspecified; I10 Essential (primary) hypertension; F12.90 Cannabis use, unspecified, uncomplicated; Z88.6 Allergy status to analgesic agent; Z88.8 Allergy status to other drugs, medicaments and biological substances; Z98.890 Other specified postprocedural states; Z90.89 Acquired absence of other organs
CPT/HCPCS: 36415; 74177; 80053; 81001; 81025; 83690; 85025; 87086; 96361; 96374; 96375; 99285; J2405; J3490; J7030; Q9967

== ENCOUNTER 2020-04-29 12:42 | Emergency (ER) | payer MEDICAID ==
[~2020-04-29] VITALS: Ht 172.7 cm; Wt 106.0 kg
[~2020-04-29 12:42] MED LIST changes: +ONDA4TAB7 PO
[2020-04-29 12:55] VITALS: BP 160/111
[2020-04-29] MEDS ORDERED: SULF1TAB24 PO (13:08)
--- NOTE | 2020-04-29 13:08 | PHYS DOC ---
Past Medical History Past Medical History: Hypertension Past Surgical History: , Tonsillectomy Additional Past Surgical Histo: x 4 C SECTION Smoking Status: Current Every Day Smoker Alcohol Use: None Drug Use: None General Adult EDM: Chief Complaint: INSECT BITE HPI: HPI: Patient is a 40 year old female presents with a couple week history of left buttocks pain. Patient noticed a boil on her buttocks little over week ago and then it opened up and drained a large amount of purulent material. Patient states the pain is much better now. Patient denies any fever or other complaints. The pain is mild in intensity now and it was severe about a week ago. Pain is worse with palpation and certain movements. Pain is nonradiating. Patient denies any fever or current drainage. Review of Systems: Review of Systems: Constitutional: Denies fever or chills. [] Eyes: Denies change in visual acuity. [] HENT: Denies nasal congestion or sore throat. [] Respiratory: Denies cough or shortness of breath. [] Cardiovascular: Denies chest pain or edema. [] GI: Denies abdominal pain, nausea, vomiting, bloody stools or diarrhea. [] : Denies dysuria. [] Musculoskeletal: Denies back pain or joint pain. [] Integument: Denies rash. Complains of boil to buttocks Neurologic: Denies headache, focal weakness or sensory changes. [] Endocrine: Denies polyuria or polydipsia. [] Lymphatic: Denies swollen glands. [] Psychiatric: Denies depression or anxiety. [] Heart Score: Risk Factors: Risk Factors: DM, Current or recent (<one month) smoker, HTN, HLP, family history of CAD, obesity. Risk Scores: Score 0 - 3: 2.5% MACE over next 6 weeks - Discharge Home Score 4 - 6: 20.3% MACE over next 6 weeks - Admit for Clinical Observation Score 7 - 10: 72.7% MACE over next 6 weeks - Early Invasive Strategies Allergies: Allergies: Allergies Coded Allergies Type Severity Reaction Last Updated Verified ibuprofen Allergy Severe angioedema 09/06/13 Yes ketorolac tromethamine Allergy Severe angioedema 09/06/13 Yes Physical Exam: PE: Constitutional: Well developed, well nourished, no acute distress, non-toxic appearance. HENT: No trismus, external ears normal Eyes: Conjunctiva clear, EOMI Neck: Normal range of motion, no tenderness, supple, no stridor. Cardiovascular: Regular rate/rhythm, peripheral pulse intact, MILL STENCILER intact Lungs & Thorax: No respiratory distress Abdomen: No distension exam: Medical Field Representative present there is an area of granulation tissue and minimally indurated area on left upper inner buttocks near the pilonidal area. There is no purulent drainage no significant erythema and area is minimally tender. There is no fluctuance. No extension into the rectal vault. Skin: Diffuse: Intact, no rash Back: Full ROM Extremities: Normal inspection, no edema Neurologic: Alert and oriented X 3, normal motor function, , no focal deficits noted. Psychologic: Affect normal, judgement normal, mood normal. Current Patient Data: Vital Signs: Vital Signs Date Time Temp Pulse Resp B/P (MAP) Pulse Ox O2 Delivery O2 Flow Rate FiO2 04/29/20 12:55 98.0 78 16 160/111 (127) 98 Room Air 98.0 EKG: EKG: [] Radiology/Procedures: Radiology/Procedures: [] Course & Med Decision Making: Course & Med Decision Making Pertinent Labs and Imaging studies reviewed. (See chart for details) [] Area appears to be already drained. I do not feel like lancing it would provide any benefit at this point. There is no fever patient is nontoxic. I will place patient on antibiotics have a surgical referral. Return precautions given. Dragon Disclaimer: Dragon Disclaimer: This electronic medical record was generated, in whole or in part, using a voice recognition dictation system. Departure Departure Impression: Primary Impression: Pilonidal abscess Condition: STABLE Referrals: NO PCP (PCP) KAM CHRISTIAN MD 1 WEEK Patient Instructions: Pilonidal Cyst, Care After Additional Instructions: EMERGENCY DEPARTMENT GENERAL DISCHARGE INSTRUCTIONS THANK YOU for coming to [facility] Emergency Department (ED) today and trusting us with your care. We trust that you had a positive experience in our Emergency Department. If you wish to speak to the department Management you can contact the supervisor slashing department at . YOUR FOLLOW UP INSTRUCTIONS ARE FOLLOWS: Do you have a private doctor? If you do not have a private doctor, please ask for a resource list of physicians or clinics that may be able to assist you with follow up care. The Emergency Physician has interpreted your x-rays. The X-ray specialist will also review them. If there is a change in the findings you will be notified in 48 hours when at all possible. A lab test or lab culture may have been done, your results will be reviewed and you will be notified if you need a change in treatment. ADDITIONAL INSTRUCTIONS AND INFORMATION Your care today has been supervised by a physician who is specially trained in emergency care. Many problems require more than one evaluation for a complete diagnosis and treatment. We recommend that you schedule your follow up appointment as recommended to ensure complete treatment of your illness or injury. If you are unable to obtain follow up care and continue to have a problem, or if your condition worsens we recommend that you return to the ED. We are not able to safely determine your condition over the phone nor are we able to give sound medical advice over the phone. For these safety reasons, if you call for medical advice we will ask you to come to the ED for further evaluation If you have any questions regarding these discharge instructions please call the ED at . SAFETY INFORMATION In the interest of safety, wellness, and injury prevention; we encourage you to wear your seatbelt, if you smoke; quit smoking, and we encourage your family to use pr otective helmet for bicycling and other sporting events that present an increased risk for head injury. IF YOUR SYMPTOMS WORSEN OR NEW SYMPTOMS DEVELOP, OR YOU HAVE CONCERNS ABOUT YOUR CONDITION; OR IF YOUR CONDITION WORSENS WHILE YOU ARE WAITING FOR YOUR FOLLOW UP APPOINTMENT; EITHER CONTACT YOUR PRIMARY CARE DOCTOR, THE PHYSICIAN WHOSE NAME AND NUMBER YOU WERE GIVEN, OR RETURN TO THE ED IMMEDIATELY. Scripts Sulfamethoxazole/Trimethoprim (BACTRIM DS TABLET) 1 Each Tablet 1 TAB PO BID for 7 Days, #14 TAB 0 Refills Prov: KAM BENITO MD 04/29/20 Justicifation of Admission Dx: Justifications for Admission: Justification of Admission Dx: N/A KAM BENITO MD Apr 29, 2020 13:08
== END 2020-04-29 13:55 | disposition home or self-care (01) ==
LOC: ER 12:42
DX: L05.01 Pilonidal cyst with abscess (principal); I10 Essential (primary) hypertension; F17.200 Nicotine dependence, unspecified, uncomplicated; Z98.890 Other specified postprocedural states; Z88.6 Allergy status to analgesic agent; Z88.8 Allergy status to other drugs, medicaments and biological substances
CPT/HCPCS: 99283

== ENCOUNTER 2020-06-23 03:05 | Emergency (ER) | payer MEDICAID ==
[~2020-06-23] VITALS: Ht 172.7 cm; Wt 90.9 kg
[~2020-06-23 03:05] MED LIST changes: +SULF1TAB24 PO
[2020-06-23 04:02] VITALS: BP 183/113
[2020-06-23] MEDS ORDERED: HYDR-3164 PO (04:21)
[2020-06-23] MEDS ORDERED: PENI500T PO (04:21)
--- NOTE | 2020-06-23 04:21 | PHYS DOC ---
Past Medical History Past Medical History: Hypertension Past Surgical History: , Tonsillectomy Additional Past Surgical Histo: x 4 C SECTION Smoking Status: Current Every Day Smoker Alcohol Use: Occasionally Drug Use: None General Adult EDM: Chief Complaint: TOOTH ACHE OR PAIN HPI: HPI: Patient is a 40 year old female who presents with a 4-hour history of left mandibular molar pain. Patient has a known cracked tooth but has started acting up 4 hours ago. Patient describes severe ear pain that is worse with chewing or palpation. Patient also has some swelling to the lymph nodes on the left side. Patient denies any recent trauma. Patient denies any fevers chills cough shortness of breath or chest pain. Review of Systems: Review of Systems: Constitutional: Denies fever or chills. [] Eyes: Denies change in visual acuity. [] HENT: Denies nasal congestion or sore throat. [] Patient complains of left mandibular dental pain Respiratory: Denies cough or shortness of breath. [] Cardiovascular: Denies chest pain or edema. [] GI: Denies abdominal pain, nausea, vomiting, bloody stools or diarrhea. [] : Denies dysuria. [] Musculoskeletal: Denies back pain or joint pain. [] Integument: Denies rash. [] Neurologic: Denies headache, focal weakness or sensory changes. [] Endocrine: Denies polyuria or polydipsia. [] Lymphatic: Denies swollen glands. [] Psychiatric: Denies depression or anxiety. [] Heart Score: Risk Factors: Risk Factors: DM, Current or recent (<one month) smoker, HTN, HLP, family history of CAD, obesity. Risk Scores: Score 0 - 3: 2.5% MACE over next 6 weeks - Discharge Home Score 4 - 6: 20.3% MACE over next 6 weeks - Admit for Clinical Observation Score 7 - 10: 72.7% MACE over next 6 weeks - Early Invasive Strategies Allergies: Allergies: Allergies Coded Allergies Type Severity Reaction Last Updated Verified ibuprofen Allergy Severe angioedema 09/06/13 Yes ketorolac tromethamine Allergy Severe angioedema 09/06/13 Yes Physical Exam: PE: Constitutional: Well developed, well nourished, no acute distress, non-toxic appearance. [] HENT: Normocephalic, atraumatic, bilateral external ears normal, floor the mouth is soft, there is no Pablo's angina, there is a crack in the left third molar on the mandible. There is minimal swelling. The floor the mouth is soft, there is some associated lymphadenopathy. Eyes: PERRLA, EOMI, conjunctiva normal, no discharge. [] Neck: Normal range of motion, no tenderness, supple, no stridor. [], No meningeal signs Cardiovascular:Heart rate regular rhythm, peripheral pulses are intact, cap refill is brisk Lungs & Thorax: Bilateral breath sounds clear, no respiratory distress Abdomen: Soft, nontender nondistended Skin: Warm, dry, no erythema, no rash. [] Back: No tenderness, no CVA tenderness. [] Extremities: No tenderness, no cyanosis, no clubbing, ROM intact, no edema. [] Neurologic: Alert and oriented X 3, normal motor function, normal sensory function, no focal deficits noted. [] Psychologic: Affect normal, judgement normal, mood normal. [] Current Patient Data: Vital Signs: Vital Signs Date Time Temp Pulse Resp B/P (MAP) Pulse Ox O2 Delivery O2 Flow Rate FiO2 06/23/20 04:02 97.7 75 16 183/113 (136) 99 Room Air 97.7 EKG: EKG: [] Radiology/Procedures: Radiology/Procedures: [] Course & Med Decision Making: Course & Med Decision Making Pertinent Labs and Imaging studies reviewed. (See chart for details) [] 40-year-old female presents with dental pain. There is no evidence of Pablo angina. Patient will be treated with antibiotics and pain medicine. Return precautions given Ermias Disclaimer: Ermias Disclaimer: This electronic medical record was generated, in whole or in part, using a voice recognition dictation system. Departure Departure Impression: Primary Impression: Toothache Additional Impression: Dental infection Disposition: 01 HOME, SELF-CARE Condition: STABLE Referrals: Dentist NO PCP (PCP) Patient Instructions: Dental Abscess Additional Instructions: EMERGENCY DEPARTMENT GENERAL DISCHARGE INSTRUCTIONS THANK YOU for coming to [facility] Emergency Department (ED) today and trusting us with your care. We trust that you had a positive experience in our Emergency Department. If you wish to speak to the department Management you can contact the supervisor extruding department at . YOUR FOLLOW UP INSTRUCTIONS ARE FOLLOWS: Do you have a private doctor? If you do not have a private doctor, please ask for a resource list of physicians or clinics that may be able to assist you with follow up care. The Emergency Physician has interpreted your x-rays. The X-ray specialist will also review them. If there is a change in the findings you will be notified in 48 hours when at all possible. A lab test or lab culture may have been done, your results will be reviewed and you will be notified if you need a change in treatment. ADDITIONAL INSTRUCTIONS AND INFORMATION Your care today has been supervised by a physician who is specially trained in emergency care. Many problems require more than one evaluation for a complete diagnosis and treatment. We recommend that you schedule your follow up appointment as recommended to ensure complete treatment of your illness or injury. If you are unable to obtain follow up care and continue to have a problem, or if your condition worsens we recommend that you return to the ED. We are not able to safely determine your condition over the phone nor are we able to give sound medical advice over the phone. For these safety reasons, if you call for medical advice we will ask you to come to the ED for further evaluation If you have any questions regarding these discharge instructions please call the ED at . SAFETY INFORMATION In the interest of safety, wellness, and injury prevention; we encourage you to wear your seatbelt, if you smoke; quit smoking, and we encourage your family to use protective helmet for bicycling and other sporting events that present an increased risk for head injury. IF YOUR SYMPTOMS WORSEN OR NEW SYMPTOMS DEVELOP, OR YOU HAVE CONCERNS ABOUT YOUR CONDITION; OR IF YOUR CONDITION WORSENS WHILE YOU ARE WAITING FOR YOUR FOLLOW UP APPOINTMENT; EITHER CONTACT YOUR PRIMARY CARE DOCTOR, THE PHYSICIAN WHOSE NAME AND NUMBER YOU WERE GIVEN, OR RETURN TO THE ED IMMEDIATELY. Scripts Hydrocodone/Apap 5-325 (NORCO 5-325 TABLET) 1 Each Tablet 1 TAB PO PRN Q6HRS PRN for PAIN, #12 TAB 0 Refills Prov: KAM BENITO MD 06/23/20 Penicillin V Potassium (PENICILLIN V POTASSIUM) 500 Mg Tablet 1 TAB PO QID, #40 TAB Prov: KAM BENITO MD 06/23/20 KAM BENITO MD Jun 23, 2020 04:21
== END 2020-06-23 04:38 | disposition home or self-care (01) ==
LOC: ER 03:05
DX: K04.7 Periapical abscess without sinus (principal); K08.89 Other specified disorders of teeth and supporting structures; R60.0 Localized edema; H92.02 Otalgia, left ear; I10 Essential (primary) hypertension; F17.200 Nicotine dependence, unspecified, uncomplicated; Z98.890 Other specified postprocedural states; Z88.2 Allergy status to sulfonamides; Z88.8 Allergy status to other drugs, medicaments and biological substances
CPT/HCPCS: 99283

== ENCOUNTER 2021-01-20 11:51 | Observation (INO) | payer MEDICAID ==
[~2021-01-20] VITALS: Ht 172.7 cm; Wt 140.6 kg
[~2021-01-20 11:51] MED LIST changes: +LISI10TA16 PO; -LISI10TA2 PO; +PENI500T PO
[2021-01-20] MEDS ORDERED: TRANEXAMIC ACID 1,000 MG/10 ML VIAL. IV ONE (12:00)
[2021-01-20] MEDS ORDERED: EPINEPHrine 1 MG/ML VIAL IM ONE (12:00)
[2021-01-20] MEDS ORDERED: methylPREDNISolone SOD SUCC PF 125 MG/2 ML VIAL. IV ONE (12:00)
[2021-01-20] MEDS ORDERED: FAMOTIDINE 20 MG/2 ML VIAL IVP ONE (12:00)
[2021-01-20] MEDS ORDERED: diphenhydrAMINE 50 MG/ML VIAL IVP ONE (12:00)
[2021-01-20] MEDS ORDERED: diphenhydrAMINE 50 MG/ML VIAL ONE (12:01)
[2021-01-20] MEDS ORDERED: methylPREDNISolone SOD SUCC PF 125 MG/2 ML VIAL. ONE (12:01)
--- NOTE | 2021-01-20 12:11 | ED.ADGEN ---
Past Medical History Past Medical History: Hypertension Past Surgical History: , Tonsillectomy Additional Past Surgical Histo: x 4 C SECTION Smoking Status: Current Every Day Smoker Alcohol Use: Occasionally Drug Use: None General Adult EDM: Chief Complaint: FACE PROBLEM HPI: HPI: Patient is a 40 year old female who woke up with facial swelling of her lower lip starting 1 hour prior to arrival when she woke up. Patient states she has never had this happen before. Was started on lisinopril December 14 for hypertension and has been taking it intermittently, states she is taking every other day mostly. She says she took her medication yesterday. No history of anaphylaxis. No family history of angioedema. Patient does not feel like there is any swelling in her tongue mouth or airway. Speaking in full sentences. Review of Systems: Review of Systems: All other systems within normal limits except for as noted in the HPI Current Medications: Current Medications Medications (Trade) Dose Ordered Sig/Jackie Start Time Stop Time Status Last Admin Dose Admin Diphenhydramine HCl (Benadryl) 50 mg STK-MED ONCE 01/20/21 12:01 01/20/21 12:01 DC Epinephrine HCl (Adrenalin) 0.3 mg 1X ONCE 01/20/21 12:00 01/20/21 12:01 DC 01/20/21 12:06 0.3 MG Famotidine (Pepcid Vial) 20 mg 1X ONCE 01/20/21 12:00 01/20/21 12:05 DC 01/20/21 12:06 20 MG Hydralazine HCl (Apresoline Inj) 5 mg 1X ONCE 01/20/21 14:30 01/20/21 14:31 DC 01/20/21 14:42 5 MG Methylprednisolone Sodium Succinate (SOLU-Medrol 125MG VIAL) 125 mg STK-MED ONCE 01/20/21 12:01 01/20/21 12:01 DC Tranexamic Acid 50 ml @ 300 mls/hr 1X ONCE 01/20/21 12:15 01/20/21 12:24 DC 01/20/21 12:17 300 MLS/HR Tranexamic Acid (Cyklokapron) 1,000 mg 1X ONCE 01/20/21 12:00 01/20/21 12:01 UNV Allergies: Allergies: Allergies Coded Allergies Type Severity Reaction Last Updated Verified ibuprofen Allergy Severe angioedema 09/06/13 Yes ketorolac tromethamine Allergy Severe angioedema 09/06/13 Yes Physical Exam: PE: Constitutional: Well developed, well nourished, no acute distress, non-toxic appearance. [] HENT: Normocephalic, atraumatic, bilateral external ears normal, nose normal. Severe edema of lower lip [] Eyes: PERRLA, conjunctiva normal, no discharge. [] Neck: No rigidity, supple, no stridor. [] Cardiovascular: Regular rate and rhythm, brisk cap refill [] Lungs & Thorax: Non labored symmetric respirations, no tachypnea or respiratory distress [] Abdomen: Soft, nondistended. Skin: Warm, dry, no erythema, no rash. [] Back: Unremarkable Extremities: No deformities, range of motion grossly intact, no lower extremity edema [] Neurologic: Alert and oriented X 3, no focal deficits noted. [] Psychologic: Affect normal, judgement normal, mood normal. [] Current Patient Data: Labs: Laboratory Tests Test 01/20/21 11:00 01/20/21 11:58 Red Blood Count 4.21 x10^6/uL (3.50-5.70) 4.28 x10^6/uL (3.50-5.40) Absolute Reticulocyte Count 0.067 x10^6/uL (0.020-0.120) Percent Reticulocyte Count 1.6 % (0.5-2.3) Immature Reticulocyte Fraction 0.54 (0.20-0.60) Iron Level 15 ug/dL (50-170) L Total Iron Binding Capacity 492 ug/dL (250-450) H Iron Saturation 3 % (15-34) L White Blood Count 6.8 x10^3/uL (4.0-11.0) Hemoglobin 8.6 g/dL (12.0-15.5) L Hematocrit 28.7 % (36.0-47.0) L Mean Corpuscular Volume 67 fL (79-100) L Mean Corpuscular Hemoglobin 20 pg (25-35) L Mean Corpuscular Hemoglobin Concent 30 g/dL (31-37) L Red Cell Distribution Width 17.3 % (11.5-14.5) H Platelet Count 413 x10^3/uL (140-400) H Neutrophils (%) (Auto) 53 % (31-73) Lymphocytes (%) (Auto) 34 % (24-48) Monocytes (%) (Auto) 10 % (0-9) H Eosinophils (%) (Auto) 2 % (0-3) Basophils (%) (Auto) 1 % (0-3) Neutrophils # (Auto) 3.6 x10^3/uL (1.8-7.7) Lymphocytes # (Auto) 2.3 x10^3/uL (1.0-4.8) Monocytes # (Auto) 0.7 x10^3/uL (0.0-1.1) Eosinophils # (Auto) 0.2 x10^3/uL (0.0-0.7) Basophils # (Auto) 0.1 x10^3/uL (0.0-0.2) Platelet Estimate Adequate (ADEQUATE) Hypochromasia Marked Poikilocytosis Slight Anisocytosis Slight Microcytosis Marked Crenated Cell Present Acanthocytes (Spur Cells) Occ Schistocytes Occ Sodium Level 142 mmol/L (136-145) Potassium Level 4.1 mmol/L (3.5-5.1) Chloride Level 105 mmol/L (98-107) Carbon Dioxide Level 25 mmol/L (21-32) Anion Gap 12 (6-14) Blood Urea Nitrogen 11 mg/dL (7-20) Creatinine 0.8 mg/dL (0.6-1.0) Estimated GFR (Cockcroft-Gault) 97.1 BUN/Creatinine Ratio 14 (6-20) Glucose Level 74 mg/dL (70-99) Calcium Level 9.0 mg/dL (8.5-10.1) Total Bilirubin 0.7 mg/dL (0.2-1.0) Aspartate Amino Transferase (AST) 19 U/L (15-37) Alanine Aminotransferase (ALT) 18 U/L (14-59) Alkaline Phosphatase 68 U/L (46-116) Total Protein 7.9 g/dL (6.4-8.2) Albumin 3.7 g/dL (3.4-5.0) Albumin/Globulin Ratio 0.9 (1.0-1.7) L Laboratory Tests 01/20/21 11:58 Laboratory Tests 01/20/21 11:58 Vital Signs: Vital Signs Date Time Temp Pulse Resp B/P (MAP) Pulse Ox O2 Delivery O2 Flow Rate FiO2 01/20/21 14:27 72 18 179/84 (115) 98 Room Air 01/20/21 11:58 98.2 98.2 EKG: EKG: [] Heart Score: C/O Chest Pain: No Risk Factors: Risk Factors: DM, Current or recent (<one month) smoker, HTN, HLP, family history of CAD, obesity. Risk Scores: Score 0 - 3: 2.5% MACE over next 6 weeks - Discharge Home Score 4 - 6: 20.3% MACE over next 6 weeks - Admit for Clinical Observation Score 7 - 10: 72.7% MACE over next 6 weeks - Early Invasive Strategies Radiology/Procedures: Radiology/Procedures: [] Course & Med Decision Making: Course & Med Decision Making Pertinent Labs and Imaging studies reviewed. (See chart for details) Lower lip began to get slightly better on the left side during observation vault 1 to 2 hours out from medications. 3 hours out lip again began to swell more, will admit for observation for airway watch and since patient received epinephrine. [] Dragon Disclaimer: Dragon Disclaimer: This electronic medical record was generated, in whole or in part, using a voice recognition dictation system. 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
[2021-01-20] MEDS ORDERED: TRANEXAMIC ACID in NS IVPB 50 ML INJ ONE (12:15)
[2021-01-20 14:29] LABS: BASO # 0.1 x10^3/uL (0.0-0.2); BASO % 1 % (0-3); EOS # 0.2 x10^3/uL (0.0-0.7); EOS % 2 % (0-3); HEMATOCRIT 28.7 % (36.0-47.0); HEMOGLOBIN 8.6 g/dL (12.0-15.5); LYMPH # 2.3 x10^3/uL (1.0-4.8); LYMPH % 34 % (24-48); MEAN CORPUSCULAR HEMOGLOBIN 20 pg (25-35); MEAN CORPUSCULAR HGB CONC 30 g/dL (31-37); MEAN CORPUSCULAR VOLUME 67 fL (79-100); MONO # 0.7 x10^3/uL (0.0-1.1); MONO % 10 % (0-9); NEUT # 3.6 x10^3/uL (1.8-7.7); NEUT % 53 % (31-73); PLATELET COUNT 413 x10^3/uL (140-400); RED BLOOD COUNT 4.28 x10^6/uL (3.50-5.40); RED CELL DISTRIBUTION WIDTH 17.3 % (11.5-14.5); WHITE BLOOD COUNT 6.8 x10^3/uL (4.0-11.0)
[2021-01-20] MEDS ORDERED: hydrALAZINE 20 MG/ML VIAL. IVP ONE (14:30)
[2021-01-20 14:40] LABS: CREATININE 0.8 mg/dL (0.6-1.0); GFR 97.1; POTASSIUM 4.1 mmol/L (3.5-5.1)
[2021-01-20 14:47] LABS: ALBUMIN 3.7 g/dL (3.4-5.0); ALBUMIN/GLOBULIN RATIO 0.9 (1.0-1.7); TOTAL BILIRUBIN 0.7 mg/dL (0.2-1.0); TOTAL PROTEIN 7.9 g/dL (6.4-8.2)
[2021-01-20 15:15] LABS: BILIRUBIN,URINE NEGATIVE (NEG); CLARITY,URINE CLEAR; COLOR,URINE YELLOW; NITRITE,URINE NEGATIVE (NEG); PH,URINE 6.5 (<5.0-8.0); PROTEIN,URINE NEGATIVE (NEG-TRACE); UROBILINOGEN,URINE 0.2 mg/dL (0.2 mg/dL)
--- NOTE | 2021-01-20 15:24 | PDOC1 ---
History and Physical Date of Admission Date of Admission DATE: 01/20/21 TIME: 15:24 Identification/Chief Complaint Chief Complaint lower lip swelling, sudden onset today History of Present Illness History of Present Illness SEEN IN ER with symptoms of angioedema /facial swelling of her lower lip starting 1 hour prior to arrival Patient states she has never had this happen before. started on lisinopril December 14 for hypertension and has been taking it intermittently, states she is taking every other day no previous reaction to an ELZA inhibitor known she took her medication yesterday. No history of anaphylaxis. No family history of angioedema. Patient does not feel like there is any swelling in her tongue mouth or airway. \given sq epi in ER X 1, IV STEROIDS, Denies recent shellfish ingestion Past Medical History Past Medical History Past Medical History: Hypertension Past Surgical History: , Tonsillectomy Additional Past Surgical Histo: x 4 C SECTION Smoking Status: Current Every Day Smoker Alcohol Use: Occasionally Drug Use: None Rheumatologic: No pertinent hx Infectious disease: No pertinent hx Renal/: No pertinent hx Family History Family History OBESITY Family History: Hypertension Social History Smoke: <1 pack per day ALCOHOL: rare Drugs: None Current Medications Current Medications Current Medications Epinephrine HCl (Adrenalin) 0.3 mg 1X ONCE IM Last administered on 01/20/21at 12:06; Start 01/20/21 at 12:00; Stop 01/20/21 at 12:01; Status DC Diphenhydramine HCl (Benadryl) 50 mg 1X ONCE IVP Last administered on 01/20/21at 12:06; Start 01/20/21 at 12:00; Stop 01/20/21 at 12:01; Status DC Methylprednisolone Sodium Succinate (SOLU-Medrol 125MG VIAL) 125 mg 1X ONCE IV Last administered on 01/20/21at 12:05; Start 01/20/21 at 12:00; Stop 01/20/21 at 1 2:01; Status DC Tranexamic Acid (Cyklokapron) 1,000 mg 1X ONCE IV ; Start 01/20/21 at 12:00; Stop 01/20/21 at 12:01; Status UNV Famotidine (Pepcid Vial) 20 mg 1X ONCE IVP Last administered on 01/20/21at 12:06; Start 01/20/21 at 12:00; Stop 01/20/21 at 12:05; Status DC Diphenhydramine HCl (Benadryl) 50 mg STK-MED ONCE .ROUTE ; Start 01/20/21 at 12:01; Stop 01/20/21 at 12:01; Status DC Methylprednisolone Sodium Succinate (SOLU-Medrol 125MG VIAL) 125 mg STK-MED ONCE .ROUTE ; Start 01/20/21 at 12:01; Stop 01/20/21 at 12:01; Status DC Tranexamic Acid 50 ml @ 300 mls/hr 1X ONCE INJ Last administered on 01/20/21at 12:17; Start 01/20/21 at 12:15; Stop 01/20/21 at 12:24; Status DC Hydralazine HCl (Apresoline Inj) 5 mg 1X ONCE IVP Last administered on 01/20/21at 14:42; Start 01/20/21 at 14:30; Stop 01/20/21 at 14:31; Status DC Active Scripts Active Rocheport 5-325 Tablet (Acetaminophen/Hydrocodone Bitart) 1 Each Tablet 1 Tab PO PRN Q6HRS PRN Penicillin V Potassium 500 Mg Tablet 1 Tab PO QID Bactrim Ds Tablet (Sulfamethoxazole/Trimethoprim) 1 Each Tablet 1 Tab PO BID 7 Days Zofran (Ondansetron Hcl) 4 Mg Tablet 1 Tab PO Q6HRS PRN Ondansetron Odt (Ondansetron) 4 Mg Tab.rapdis 1 Tab PO PRN Q6-8HRS Dicyclomine Hcl 20 Mg Tablet 1 Tab PO TID Lisinopril 10 Mg Tablet 1 Tab PO DAILY Penicillin V Potassium 250 Mg Tablet 250 Mg PO QID Rocheport 5-325 Tablet (Acetaminophen/Hydrocodone Bitart) 1 Each Tablet 1 Tab PO PRN Q6HRS PRN Reported Cyclobenzaprine Hcl 10 Mg Tablet 10 Mg PO TID Naproxen 500 Mg Tablet 1 Tab PO BID Allergies Allergies: Coded Allergies: ibuprofen (Verified Allergy, Severe, angioedema, 09/06/13) ketorolac tromethamine (Verified Allergy, Severe, angioedema, 09/06/13) ROS Review of System facial and lower lip swelling General: No: Chills, Night Sweats, Fatigue, Malaise, Appetite, Other PSYCHOLOGICAL ROS: No: Anxiety, Behavioral Disorder, Concentration difficultie, Decreased libido, Depression, Disorientation, Hallucinations, Hostility, Irritablity, Memory difficulties, Mood Swings, Obsessive thoughts, Physical abuse, Sexual abuse, Sleep disturbances, Suicidal ideation, Other Eyes: No Blurry vision, No Decreased vision, No Double vision, No Dry eyes, No Excessive tearing, No Eye Pain, No Itchy Eyes, No Loss of vision, No Photophobia, No Scotomata, No Uses contacts, No Uses glasses, No Other HEENT: No: Heacaches, Visual Changes, Hearing change, Nasal congestion, Nasal discharge, Oral lesions, Sinus pain, Sore Throat, Epistaxis, Sneezing, Snoring, Tinnitus, Vertigo, Vocal changes, Other ALLERGY AND IMMUNOLOGY: No: Hives, Insect Bite Sensitivity, Itchy/Watery Eyes, Nasal Congestion, Post Nasal Drip, Seasonal Allergies, Other Hematological and Lymphatic: No: Bleeding Problems, Blood Clots, Blood Transfusions, Brusing, Night Sweats, Pallor, Swollen Lymph Nodes, Other ENDOCRINE: No: Breast Changes, Galactorrhea, Hair Pattern Changes, Hot Flashes, Malaise/lethargy, Mood Swings, Palpitations, Polydipsia/polyuria, Skin Changes, Temperature Intolerance, Unexpected Weight Changes, Other Breast: No New/Changing Breast Lumps, No Nipple changes, No Nipple discharge, No Other Respiratory: No: Cough, Hemoptysis, Orthopnea, Pleuritic Pain, Shortness of breath, SOB with excertion, Sputum Changes, Stridor, Tachypnea, Wheezing, Other Cardiovascular: No Chest Pain, No Palpitations, No Orthopnea, No Paroxysmal Noc. Dyspnea, No Edema, No Lt Headedness, No Other Gastrointestinal: No Nausea, No Vomiting, No Abdominal Pain, No Diarrhea, No C onstipation, No Melena, No Hematochezia, No Other Genitourinary: No Dysuria, No Frequency, No Incontinence, No Hematuria, No Retention, No Discharge, No Urgency, No Pain, No Flank Pain, No Other, No , No , No , No , No , No , No Musculoskeletal: No Gait Disturbance, No Joint Pain, No Joint Stiffness, No Joint Swelling, No Muscle Pain, No Muscular Weakness, No Pain In:, No Swelling In:, No Other Neurological: No Behavorial Changes, No Bowel/Bladder ControlChng, No Confusion, No Dizziness, No Gait Disturbance, No Headaches, No Impaired Coord/balance, No Memory Loss, No Numbness/Tingling, No Seizures, No Speech Problems, No Tremors, No Visual Changes, No Weakness, No Other Skin: No Dry Skin, No Eczema, No Hair Changes, No Lumps, No Mole Changes, No Mottling, No Nail Changes, No Pruritus, No Rash, No Skin Lesion Changes, No Other, No Acne Physical Exam Physical Exam lower lip swelling, moderate General: Alert, Oriented X3, Cooperative, No acute distress, mild distress HEENT: Atraumatic, PERRLA, EOMI, Mucous membr. moist/pink, Other (mod facial edema) Lungs: Clear to auscultation, Normal air movement Heart: S1S2, RRR, no thrills, no rubs, no gallops, no murmurs, no jug vein distention Breasts: Not examined Abdomen: Normal bowel sounds, Soft Rectal Exam: not examined PELVIC: Examination not indicated Extremities: No clubbing, No cyanosis, No edema Skin: No breakdown Neuro: Normal gait, Normal speech, Strength at 5/5 X4 ext, Normal tone, Sensation intact, Cranial nerves 3-12 NL, Reflexes 2+ Psych/Mental Status: Mental status NL, Mood NL Vitals Vitals Vital Signs Date Time Temp Pulse Resp B/P (MAP) Pulse Ox O2 Delivery O2 Flow Rate FiO2 01/20/21 14:42 69 179/84 01/20/21 11:58 98.2 24 99 Room Air 98.2 Labs Labs Laboratory Tests Test 01/20/21 11:58 01/20/21 15:06 White Blood Count 6.8 x10^3/uL (4.0-11.0) Red Blood Count 4.28 x10^6/uL (3.50-5.40) Hemoglobin 8.6 g/dL (12.0-15.5) Hematocrit 28.7 % (36.0-47.0) Mean Corpuscular Volume 67 fL (79-100) Mean Corpuscular Hemoglobin 20 pg (25-35) Mean Corpuscular Hemoglobin Concent 30 g/dL (31-37) Red Cell Distribution Width 17.3 % (11.5-14.5) Platelet Count 413 x10^3/uL (140-400) Neutrophils (%) (Auto) 53 % (31-73) Lymphocytes (%) (Auto) 34 % (24-48) Monocytes (%) (Auto) 10 % (0-9) Eosinophils (%) (Auto) 2 % (0-3) Basophils (%) (Auto) 1 % (0-3) Neutrophils # (Auto) 3.6 x10^3/uL (1.8-7.7) Lymphocytes # (Auto) 2.3 x10^3/uL (1.0-4.8) Monocytes # (Auto) 0.7 x10^3/uL (0.0-1.1) Eosinophils # (Auto) 0.2 x10^3/uL (0.0-0.7) Basophils # (Auto) 0.1 x10^3/uL (0.0-0.2) Sodium Level 142 mmol/L (136-145) Potassium Level 4.1 mmol/L (3.5-5.1) Chloride Level 105 mmol/L (98-107) Carbon Dioxide Level 25 mmol/L (21-32) Anion Gap 12 (6-14) Blood Urea Nitrogen 11 mg/dL (7-20) Creatinine 0.8 mg/dL (0.6-1.0) Estimated GFR (Cockcroft-Gault) 97.1 BUN/Creatinine Ratio 14 (6-20) Glucose Level 74 mg/dL (70-99) Calcium Level 9.0 mg/dL (8.5-10.1) Total Bilirubin 0.7 mg/dL (0.2-1.0) Aspartate Amino Transf (AST/SGOT) 19 U/L (15-37) Alanine Aminotransferase (ALT/SGPT) 18 U/L (14-59) Alkaline Phosphatase 68 U/L (46-116) Total Protein 7.9 g/dL (6.4-8.2) Albumin 3.7 g/dL (3.4-5.0) Albumin/Globulin Ratio 0.9 (1.0-1.7) Bedside Urine HCG, Qualitative Hcg negative (Negative) Laboratory Tests Test 01/20/21 11:58 01/20/21 15:06 White Blood Count 6.8 x10^3/uL (4.0-11.0) Red Blood Count 4.28 x10^6/uL (3.50-5.40) Hemoglobin 8.6 g/dL (12.0-15.5) Hematocrit 28.7 % (36.0-47.0) Mean Corpuscular Volume 67 fL (79-100) Mean Corpuscular Hemoglobin 20 pg (25-35) Mean Corpuscular Hemoglobin Concent 30 g/dL (31-37) Red Cell Distribution Width 17.3 % (11.5-14.5) Platelet Count 413 x10^3/uL (140-400) Neutrophils (%) (Auto) 53 % (31-73) Lymphocytes (%) (Auto) 34 % (24-48) Monocytes (%) (Auto) 10 % (0-9) Eosinophils (%) (Auto) 2 % (0-3) Basophils (%) (Auto) 1 % (0-3) Neutrophils # (Auto) 3.6 x10^3/uL (1.8-7.7) Lymphocytes # (Auto) 2.3 x10^3/uL (1.0-4.8) Monocytes # (Auto) 0.7 x10^3/uL (0.0-1.1) Eosinophils # (Auto) 0.2 x10^3/uL (0.0-0.7) Basophils # (Auto) 0.1 x10^3/uL (0.0-0.2) Sodium Level 142 mmol/L (136-145) Potassium Level 4.1 mmol/L (3.5-5.1) Chloride Level 105 mmol/L (98-107) Carbon Dioxide Level 25 mmol/L (21-32) Anion Gap 12 (6-14) Blood Urea Nitrogen 11 mg/dL (7-20) Creatinine 0.8 mg/dL (0.6-1.0) Estimated GFR (Cockcroft-Gault) 97.1 BUN/Creatinine Ratio 14 (6-20) Glucose Level 74 mg/dL (70-99) Calcium Level 9.0 mg/dL (8.5-10.1) Total Bilirubin 0.7 mg/dL (0.2-1.0) Aspartate Amino Transf (AST/SGOT) 19 U/L (15-37) Alanine Aminotransferase (ALT/SGPT) 18 U/L (14-59) Alkaline Phosphatase 68 U/L (46-116) Total Protein 7.9 g/dL (6.4-8.2) Albumin 3.7 g/dL (3.4-5.0) Albumin/Globulin Ratio 0.9 (1.0-1.7) Bedside Urine HCG, Qualitative Hcg negative (Negative) VTE Prophylaxis Ordered VTE Prophylaxis Devices: Yes VTE Pharmacological Prophylaxi: Yes Assessment/Plan Assessment/Plan impression Angioedema sec to elza I, lisinopril Hypertension Morbid obesity moderate microcytic anemia, chk fe panel TOBACCO ABUSE DISORDER, smoking cessation discussed plan ADMIT IV STEROIDS IV PEPSID D/C ALL ELZA INHIBITORS IN FUTURE Keep food diary x 7 days, avoid food dyes, nuts, shellfish FE PANEL START NORVASC 10MG PO DAILY dvt prophylaxis D/W ER Justifications for Admission Other Justification ASHLEY MCGEE MD January 20, 2021 15:24
[2021-01-20] MEDS ORDERED: ONDANSETRON PF 4 MG/2 ML VIAL. IV PRN ×2 (15:45→16:45)
[2021-01-20] MEDS ORDERED: MORPHINE SULFATE 2 MG/ML VIAL. IV PRN (15:45)
[2021-01-20] MEDS ORDERED: ACETAMINOPHEN 325 MG TABLET. PO PRN ×2 (15:45→16:45)
[2021-01-20 15:50] LABS: BACTERIA,URINE FEW /HPF (0-FEW); RBC,URINE 0 /HPF (0-2); WBC,URINE 0 /HPF (0-4)
[2021-01-20] MEDS ORDERED: SODIUM PHOSPHATES 19/7GM 133 ML ENEMA. PR PRN (16:45)
[2021-01-20] MEDS ORDERED: MAG HYDROX/ALUMINUM HYD/SIMETH 30 ML ORAL.SUSP PO PRN (16:45)
[2021-01-20] MEDS ORDERED: DOCUSATE SODIUM 100 MG CAPSULE. PO PRN (16:45)
[2021-01-20] MEDS ORDERED: LORazepam 0.5 MG TABLET PO PRN (16:45)
[2021-01-20] MEDS ORDERED: ALBUTEROL SULFATE 2.5 MG/3 ML NEBU. NEB PRN (16:45)
[2021-01-20] MEDS ORDERED: 0.9 % SODIUM CHLORIDE 10 ML DISP.SYRIN. IV PRN (16:45)
[2021-01-20] MEDS ORDERED: guaiFENesin ORAL 200 MG/10 ML LIQUID. PO PRN (16:45)
[2021-01-20] MEDS ORDERED: diphenhydrAMINE 50 MG/ML VIAL IVP PRN (16:45)
[2021-01-20] MEDS: IV NORMAL SALINE 1000ML BAG 1,000 ML IV SCH (17:30)
[2021-01-20] MEDS: amLODIPine BESYLATE 10 MG TABLET PO SCH (17:33)
[2021-01-20 17:35] LABS: ANISOCYTOSIS SLIGHT; HYPOCHROMIA MARKED; MICROCYTOSIS MARKED; PLT ESTIMATE ADEQUATE (ADEQUATE); POIKILOCYTOSIS SLIGHT
[2021-01-20 17:36] VITALS: BP 147/81
[2021-01-20 17:36] LABS: ACANTHOCYTES OCC; SCHISTOCYTES OCC
[2021-01-20 19:00] VITALS: BP 147/74
[2021-01-20] MEDS ORDERED: MONTELUKAST SODIUM 10 MG TABLET. PO SCH (21:00)
[2021-01-20] MEDS ORDERED: ENOXAPARIN 40 MG/0.4 ML SYRINGE. SQ SCH (21:00)
[2021-01-20] MEDS: FAMOTIDINE 20 MG/2 ML VIAL IVP SCH (21:47)
[2021-01-20] MEDS: methylPREDNISolone SOD SUCC PF 125 MG/2 ML VIAL. IV SCH (21:47)
[2021-01-20 23:04] VITALS: BP 148/72
[2021-01-21 03:03] VITALS: BP 152/78
[2021-01-21] MEDS: IV NORMAL SALINE 1000ML BAG 1,000 ML IV SCH (04:14)
[2021-01-21] MEDS: methylPREDNISolone SOD SUCC PF 125 MG/2 ML VIAL. IV SCH (06:00)
[2021-01-21 07:00] VITALS: BP 143/71
[2021-01-21] MEDS: FAMOTIDINE 20 MG/2 ML VIAL IVP SCH (09:16)
[2021-01-21] MEDS: amLODIPine BESYLATE 10 MG TABLET PO SCH (09:16)
[2021-01-21 11:00] VITALS: BP 156/75
[2021-01-21] MEDS ORDERED: AMLO-187 PO (12:04)
[2021-01-21] MEDS ORDERED: MONT10TA49 PO (12:04)
--- NOTE | 2021-01-21 12:48 | DS ---
DATE OF DISCHARGE: 01/21/2021 ADMITTING DIAGNOSIS: Angioedema. DISCHARGE DIAGNOSIS: Resolving angioedema. HOSPITAL COURSE: The patient is a pleasant, middle-aged female, who presented with angioedema. She was admitted. We gave her steroids, Pepcid and Benadryl. Over the past couple days, she returned to baseline. This morning, I saw and examined her. Her swelling is down. I am discharging on Medrol Dosepak and [id number] Pepcid and Benadryl. DISPOSITION: Home. ACTIVITY: As tolerated. DIET: Low sodium. DISCHARGE MEDICATIONS: Please see the MRAD. I did leave a prescription for Medrol Dosepak and/or take [id number] Pepcid and Benadryl. We also have a prescription for amlodipine 10 a day and Singulair 10 a day. TOTAL TIME: [address]: Spenser TID: [id number]
--- NOTE | 2021-01-21 13:30 | NUR ---
Discharge Note: SANDY MOSELEY Discharge instructions and discharge home medications reviewed with Patient and a copy given. Prescriptions given. All questions have been answered and understanding verbalized. The following instructions and handouts were given: Education on angioedema and HTN. Discontinued IV line and telemetry. Patient discharged to Home with Self-Care
--- NOTE | 2021-01-21 13:41 | NUR ---
SW following. Discussed with RN, pt from home, room air, regular diet. Discharge order for home with self care. RN advised no SW needs.
== END 2021-01-21 13:30 | disposition home or self-care (01) ==
LOC: ER 11:51 → 6 SOUTH 14:35
PROVIDERS: ADMIT Family Medicine; ATTEND Family Medicine
DX: T78.3XXA Angioneurotic edema, initial encounter (principal); T46.4X5A Adverse effect of angiotensin-converting-enzyme inhibitors, initial encounter; I10 Essential (primary) hypertension; E66.01 Morbid (severe) obesity due to excess calories; D50.9 Iron deficiency anemia, unspecified; F17.210 Nicotine dependence, cigarettes, uncomplicated; Z90.49 Acquired absence of other specified parts of digestive tract; Z90.710 Acquired absence of both cervix and uterus; Z98.891 History of uterine scar from previous surgery; Z68.42 Body mass index [BMI] 45.0-49.9, adult
CPT/HCPCS: 36415; 80053; 81001; 81025; 83540; 83550; 85025; 85045; 96361; 96372; 96374; 96375; 96376; 99284; G0378; J0171; J0360; J1200; J2930; J3490; J7030; G0379